=== PATIENT | female | born 1980 | race Caucasian/White ===

== ENCOUNTER 2017-08-15 23:14 | Emergency (ER) | payer MEDICAID ==
[2017-08-15 23:29] VITALS: RESP 16
[2017-08-15] MEDS ORDERED: MAG HYDROX/AL HYDROX/SIMETH 30 ML UDCUP PO ONE (23:48)
--- NOTE | 2017-08-15 23:49 | EDPHY ---
H & P Stated Complaint: Spider bite on chin Time Seen by Provider: 08/15/17 23:27 HPI/ROS: Chief Complaint: Red bump on chin HPI: 37-year-old homeless woman presenting with a worsening red bump on her chin for the last 2 days. Patient states it started as a pimple was squeezing it. This swelling and pain is gotten worse. She denies any fevers or chills. No shortness of breath. No abdominal pain or cramping. No nausea or vomiting. No headaches. ROS: 10 point Review of Systems is negative except as noted in the HPI. PMH: Hepatitis-C Social History: [No] smoking, positive alcohol, occasional recreational drug use Family History: [non-contributory] Physical Exam: General: Awake, alert, no acute distress HEENT: She has got a fluctuance on her chin approximately 1 cm which is pointing. There is no significant surrounding erythema. Skin: No rash - Personal History LMP (Females 10-55): Current Tetanus/Diphtheria Vaccine: Yes - Medical/Surgical History Hx Asthma: No Hx Chronic Respiratory Disease: No Hx Diabetes: No Hx Cardiac Disease: No Hx Renal Disease: No Hx Cirrhosis: No Hx Alcoholism: No - Social History Smoking Status: Current every day smoker Constitutional: Initial Vital Signs Temperature (C) 36.7 C 08/15/17 23:26 Heart Rate 110 H 08/15/17 23:26 Respiratory Rate 16 08/15/17 23:26 Blood Pressure 120/101 H 08/15/17 23:26 O2 Sat (%) 99 08/15/17 23:26 O2 Delivery Mode Room Air Allergies/Adverse Reactions: peanut Allergy (Verified 08/15/17 23:30) Home Medications: Medication Instructions Recorded 08/15/17 Medical Decision Making Procedures: Procedure: Abscess drainage. The patient's abscess was located on the chin. I obtained verbal consent from the patient to drain the abscess who was informed about the possibility of bleeding and pain. The abscess was incised with [a scalpel] and a moderate amount of purulent drainage was expressed. I irrigated the wound and placed some packing. The patient tolerated the procedure well. The procedure was performed by myself. ED Course/Re-evaluation: Patient is complaining of a little bit of heartburn after the I and D. She is given Maalox. She will be discharged with instructions to follow up with [facility]. Packing should be removed in 2 days. Departure - Departure Disposition: Home, Routine, Self-Care Clinical Impression: Abscess Condition: Good Instructions: Abscess (ED) Additional Instructions: Follow up with [facility]. Packing needs to be removed in 2 days. Return to the emergency department for increasing redness, fevers, chills, or any other concerns. The Referrals: [facility],. [Clinic] - As per Instructions
[2017-08-16 00:15] VITALS: BP 144/87; PULSE 67; TEMP 98.4; O2SAT 97
== END 2017-08-16 00:47 | disposition home or self-care (01) ==
LOC: EDUNIT#
PROC: 0H91XZZ Drainage of Face Skin, External Approach (ICD-10-PCS; principal; 2017-08-15)
DX: O99.719 Diseases of the skin and subcutaneous tissue complicating pregnancy, unspecified trimester (principal); L02.01 Cutaneous abscess of face; F17.200 Nicotine dependence, unspecified, uncomplicated; Z3A.00 Weeks of gestation of pregnancy not specified